=== PATIENT | male | born 1950 | race Caucasian/White ===

== ENCOUNTER 2018-07-22 12:18 | Emergency (ER) | payer MEDICARE, OTHER ==
--- NOTE | 2018-07-22 13:40 | ED Physician Documentation ---
History of Present Illness - Stated complaint Stated Complaint: TOE PX - Chief complaint Chief Complaint: Trauma Ext - History obtained from History obtained from: Patient - History of Present Illness Timing: How many weeks ago (1) Pain level max: 4 Pain level now: 3 - Additonal information Additional information: 67-year-old male presents to the emergency department with swelling and redness of the right great toe, around the nail edges. Ongoing for the past week. Nothing makes it better. Worse with palpation and movement. No known injury. Review of Systems Constitutional: denies: Fever GI: denies: Vomiting PD PAST MEDICAL HISTORY - Past Medical History Past Medical History: Yes Respiratory: Other : Kidney stones Musculoskeletal: Chronic back pain - Past Surgical History Past Surgical History: Yes - Present Medications Home Medications: Ambulatory Orders Medication Instructions Recorded Confirmed Gabapentin [Gralise] 1,800 09/17/15 Meloxicam 09/17/15 Morphine ER 45 mg PO DAILY 09/17/15 09/17/15 oxyCODONE [Roxicodone] 10 09/17/15 predniSONE [Deltasone] 40 09/17/15 Cephalexin [Keflex] 500 mg PO Q6H #28 capsule 07/22/18 - Allergies Allergies/Adverse Reactions: Allergies Allergy/AdvReac Type Severity Reaction Status Date / Time pregabalin [From Lyrica] AdvReac Unknown Verified 07/22/18 12:23 - Social History Does the pt smoke?: No Smoking Status: Never smoker Does the pt drink ETOH?: No Does the pt have substance abuse?: No - Immunizations Immunizations are current?: Yes PD ED PE NORMAL - Vitals Vital signs reviewed: Yes - General General: Alert and oriented X 3, No acute distress - HEENT HEENT: Moist mucous membranes - Derm Derm: Warm and dry - Extremities Extremities: Other (Right great toe - Mild erythema around the nail fold, mainly the distal left aspect and the proximal right aspect. There is no drainable abscess.) - Neuro Neuro: Alert and oriented X 3 Results - Vitals Vitals: Vital Signs - 24 hr 07/22/18 07/22/18 12:22 13:43 Temperature 36.4 C L 36.6 C Heart Rate 60 60 Respiratory 18 16 Rate Blood Pressure 129/70 128/72 O2 Saturation 98 98 Oxygen O2 Source Room air PD MEDICAL DECISION MAKING - ED course Complexity details: considered differential, d/w patient ED course: Patient with a paronychia of the right great toe, but nothing drainable. Will place on antibiotics and topical antibiotics and see how he progresses. Patient counseled regarding signs and symptoms for which I believe and urgent re- evaluation would be necessary. Patient with good understanding of and agreement to plan and is comfortable going home at this time This document was made in part using voice recognition software. While efforts are made to proofread this document, sound alike and grammatical errors may occur. Departure - Departure Disposition: 01 Home, Self Care Clinical Impression: Paronychia of great toe, right Cellulitis Qualifiers: Site of cellulitis: extremity Site of cellulitis of extremity: toe Laterality: right Qualified Code(s): L03.031 - Cellulitis of right toe Condition: Good Instructions: ED Fingernail Infec Follow-Up: Yared Albrecht MD [Primary Care Provider] - Within 1 week Prescriptions: Cephalexin [Keflex] 500 mg PO Q6H #28 capsule Comments: Use antibiotics as prescribed. You can also apply antibiotic ointment at home. Return if you worsen. Discharge Date/Time: 07/22/18 13:43
[2018-07-22 13:45] VITALS: BP 128/72
== END 2018-07-22 13:43 | disposition home or self-care (01) ==
LOC: ED 12:18
DX: L03.031 Cellulitis of right toe (principal)
CPT/HCPCS: 99283